=== PATIENT | male | born 1960 ===

== ENCOUNTER 2018-05-18 21:38 | Emergency (ER) | payer MEDICAID ==
[~2018-05-18] VITALS: Ht 165.1 cm; Wt 262.7 kg
[2018-05-18 21:39] VITALS: Ht 165.1 cm; Wt 262.7 kg
[2018-05-18] MEDS ORDERED: ASPIRIN EC325 M1 PO (22:36)
[2018-05-18] MEDS ORDERED: FEXOFENADINE HC60 MG PO (22:36)
[2018-05-18] MEDS ORDERED: NORVASC10 MG PO (22:36)
[2018-05-18] MEDS ORDERED: ZIAC 10-6.25 MG1 TAB PO (22:37)
[2018-05-18] MEDS ORDERED: LIPITOR10 MG PO (22:37)
[2018-05-18] MEDS ORDERED: FLOMAX0.4 MG PO (22:38)
[2018-05-18] MEDS ORDERED: RANITIDINE HCL150 M1 PO (22:39)
[2018-05-18] MEDS ORDERED: PROSCAR5 MG PO (22:39)
[2018-05-18] MEDS ORDERED: MULTI-DAY VITAM1 TAB PO (22:39)
[2018-05-18] MEDS ORDERED: LINZESS290 MCG PO (22:39)
[2018-05-18] MEDS ORDERED: BUSPIRONE HCL7.5 MG PO (22:40)
[2018-05-18] MEDS ORDERED: TRAZODONE HCL150 MG PO (22:40)
[2018-05-18] MEDS ORDERED: MUCINEX600 MG PO (22:40)
[2018-05-18] MEDS ORDERED: ZOLOFT100 MG PO (22:40)
[2018-05-18] MEDS ORDERED: METOLAZONE5 MG PO (22:41)
[2018-05-18] MEDS ORDERED: ALBUTEROL SULF8.5 GM INH (22:42)
[2018-05-18] MEDS ORDERED: NEURONTIN600 MG PO (22:43)
[2018-05-18] MEDS ORDERED: SENNA LAXATIVE8.6 MG PO (22:43)
[2018-05-18] MEDS ORDERED: ALDACTONE100 MG PO (22:43)
[2018-05-18] MEDS ORDERED: HYDROCODON-ACE1 EAC7 PO (22:44)
[2018-05-18] MEDS ORDERED: HEMORRHOIDAL OI57 GM TP (22:44)
[2018-05-18] MEDS ORDERED: IPRAT-ALBUT 0.5-3 ML UPD (22:44)
[2018-05-18] MEDS ORDERED: IMODIUM2 MG PO (22:46)
[2018-05-18] MEDS ORDERED: ROBITUSSIN DM 110 ML PO (22:46)
[2018-05-18 23:04] LABS: BASOPHILS 0.1 % (0-2); EOSINOPHILS 3.9 % (0-7); HEMOGLOBIN 11.6 g/dL (13.5-17.5); IMMATURE GRANULOCYTES 0.6 % (0-5); LYMPHOCYTES 16.5 % (15-50); MCHC 30.5 g/dL (31.0-37.0); MEAN PLATELET VOLUME 9.7 fL (7.4-10.4); MONOCYTES 8.8 % (2-11); NEUTROPHILS 70.1 % (40-80); PLATELET COUNT 153 10x3/uL (130-400); RDW 15.8 % (11.5-14.5); WBC 6.7 10x3/uL (4.8-10.8)
[2018-05-18 23:31] LABS: APTT 29.6 SECONDS (22.8-39.4); INR 1.04 (0.85-1.17); PROTIME 13.1 SECONDS (11.6-15.0)
[2018-05-18 23:32] LABS: D-DIMER-QUANTITATIVE 0.76 ug/mLFEU (0.20-0.54)
[2018-05-18 23:37] LABS: ALBUMIN 3.2 g/dL (3.4-5.0); ALKALINE PHOSPHATASE 89 U/L (46-116); ALT (SGPT) 41 U/L (10-68); BILIRUBIN - TOTAL 0.18 mg/dL (0.2-1.3); CALC OSMOLALITY 284 mosm/kg (275-300); CALCIUM 9.4 mg/dL (8.5-10.1); CARBON DIOXIDE 36.8 mmol/L (21.0-32.0); CHLORIDE - SERUM 99 mmol/L (98-107); CREATININE - SERUM 1.1 mg/dL (0.6-1.3); GLUCOSE 186 mg/dL (74-106); POTASSIUM - SERUM 5.1 mmol/L (3.5-5.1); PROTEIN - SERUM 7.8 g/dL (6.4-8.2); SODIUM 138 mmol/L (136-145); UREA NITROGEN 23 mg/dL (7-18); eGFR NON AFRICAN AMERICAN 73 mL/min (90-120)
[2018-05-18 23:55] LABS: CKMB 1.4 U/L (0.0-3.6); CREATINE KINASE 127 UL (21-232); PRO BNP 55 pg/mL (0-125); TROPONIN-I < 0.017 ng/mL (0.000-0.060)
[2018-05-19] MEDS ORDERED: OMNICEF300 MG PO (00:54)
[2018-05-19 02:30] VITALS: BP 159/92
[2018-05-26 16:55] VITALS: Ht 165.1 cm; Wt 262.7 kg
== END 2018-05-19 02:58 ==
LOC: EDBD 21:38 → D.ER 21:38
PROVIDERS: Family Medicine
DX: J40 Bronchitis, not specified as acute or chronic (principal); J44.9 Chronic obstructive pulmonary disease, unspecified; E66.01 Morbid (severe) obesity due to excess calories; G47.30 Sleep apnea, unspecified

== ENCOUNTER 2018-05-19 18:51 | Inpatient (IN) | payer MEDICARE ==
[2018-05-19] VITALS (7 sets, daily range): BP systolic 141–178; BP diastolic 65–87
[~2018-05-19] VITALS: Ht 165.1 cm; Wt 266.4 kg
[~2018-05-19 18:51] MED LIST: ALBUTEROL SULF8.5 GM INH; ALDACTONE100 MG PO; ASPIRIN EC325 M1 PO; BUSPIRONE HCL7.5 MG PO; FEXOFENADINE HC60 MG PO; FLOMAX0.4 MG PO; HEMORRHOIDAL OI57 GM TP; HYDROCODON-ACE1 EAC7 PO; IMODIUM2 MG PO; IPRAT-ALBUT 0.5-3 ML UPD; LINZESS290 MCG PO; LIPITOR10 MG PO; METOLAZONE5 MG PO; MUCINEX600 MG PO; MULTI-DAY VITAM1 TAB PO; NEURONTIN600 MG PO; NORVASC10 MG PO; OMNICEF300 MG PO; PROSCAR5 MG PO; RANITIDINE HCL150 M1 PO; ROBITUSSIN DM 110 ML PO; SENNA LAXATIVE8.6 MG PO; TRAZODONE HCL150 MG PO; ZIAC 10-6.25 MG1 TAB PO; ZOLOFT100 MG PO
[2018-05-19 20:30] LABS: BASOPHILS 0.1 % (0-2); EOSINOPHILS 0.8 % (0-7); HEMATOCRIT 41.1 % (42.0-54.0); HEMOGLOBIN 12.5 g/dL (13.5-17.5); IMMATURE GRANULOCYTES 1.1 % (0-5); LYMPHOCYTES 13.2 % (15-50); MCH 29.3 pg (26.0-34.0); MCHC 30.4 g/dL (31.0-37.0); MCV 96.5 fL (80.0-100.0); MEAN PLATELET VOLUME 10.5 fL (7.4-10.4); MONOCYTES 11.3 % (2-11); NEUTROPHILS 73.5 % (40-80); PLATELET COUNT 169 10x3/uL (130-400); RBC 4.26 10x6/uL (4.20-6.10); RDW 16.2 % (11.5-14.5)
[2018-05-19 20:45] LABS: WBC 8.7 10x3/uL (4.8-10.8)
[2018-05-19 20:52] LABS: APPEARANCE CLEAR (CLEAR); COLOR YELLOW (YELLOW); SPECIFIC GRAVITY 1.015 (1.005-1.020)
[2018-05-19 20:53] LABS: BACTERIA FEW /hpf (NONE SEEN); BILIRUBIN NEGATIVE (NEGATIVE); GLUCOSE NEGATIVE (NEGATIVE); KETONE NEGATIVE (NEGATIVE); NITRITE NEGATIVE (NEGATIVE); PROTEIN TRACE mg/dL (NEGATIVE); UROBILINOGEN NORMAL (NORMAL); WHITE CELLS - URINE OCC /hpf (0-5)
[2018-05-19 21:00] LABS: CALC OSMOLALITY 275 mosm/kg (275-300); CALCIUM 9.6 mg/dL (8.5-10.1); CARBON DIOXIDE 39.4 mmol/L (21.0-32.0); CHLORIDE - SERUM 97 mmol/L (98-107); CREATININE - SERUM 1.1 mg/dL (0.6-1.3); GLUCOSE 159 mg/dL (74-106); PRO BNP 392 pg/mL (0-125); SODIUM 134 mmol/L (136-145); UREA NITROGEN 26 mg/dL (7-18); eGFR NON AFRICAN AMERICAN 73 mL/min (90-120)
[2018-05-19 21:01] LABS: TROPONIN-I < 0.017 ng/mL (0.000-0.060)
[2018-05-19 21:02] LABS: POTASSIUM - SERUM 6.4 mmol/L (3.5-5.1)
--- NOTE | 2018-05-19 22:45 | NUR ---
PT KEEPS TAKING BIPAP OFF. EDUCATED PT ON THE NEED TO WEAR BIPAP. PAGED RT TO FIX MASK OF BIPAP WHERE PT KEEPS TAKING OFF. PT REFUSES TO ALLOW THIS NURSE OR MOSES GARCIA TO PLACE BIPAP MASK ON. NOTIFIED DOCTOR DOWNEN THAT PT KEEPS TAKING MASK OFF.
[2018-05-20] VITALS (20 sets, daily range): BP systolic 109–164; BP diastolic 60–94; BMI 96.5; BMI 96.3
--- NOTE | 2018-05-20 00:05 | NUR ---
ANESTHESIA PAGED FOR POSSIBLE INTUBATION
--- NOTE | 2018-05-20 00:15 | NUR ---
ANESTHESIA INTUBATED PT WITH 8.5 et TUBE 23CM AT LIP. OGT PLACED AND XRAY OBTAINED TO CHECK FOR PLACEMENT. 0048 SOFT WRIST RESTRAINTS PLACED ON PT TO PROTECT AIRWAY. 1302 DIPROVAN STARTED AT 10MCG/KG/MIN. VENT SETTINGS ARE FOLLOWING: TV 500 PEEP 10 100% FIO2. VSS. BP 167/90 HR 127 98% PER VENT.
--- NOTE | 2018-05-20 03:29 | NUR ---
IVF STOPPED WHEN PT TRANSFERED TO ICU @0205
--- NOTE | 2018-05-20 03:32 | NUR ---
KAYE STOPPED @ 0205 WHEN PT TRANSFERED TO ICU
--- NOTE | 2018-05-20 03:40 | NUR ---
PT RECIEVED TO ICU 2306 VIA [facility] BED. MONITOR EQUIP ESTABLISHED. VSS. ON VENTILATOR PER ORAL 8.5 ETT 28 AT LL. SECURELY TAPED. OGT IN PLACE. HOB ELEVATED. PIV R HAND WITH PROPOFOL INFUSING FOR SEDATION. NSR PER CM. FONTENOT TO GRAVITY WITH BLODD TINGED URINE DRAINING. PRESSURE ULCER NOTED TO THE BACK OF LEFT LEG APPROX 1 INCH IN DIAMETER.
--- NOTE | 2018-05-20 07:00 | NUR ---
SHIFT ASSESSMENT COMPLETED. PT CARE ASSUMED. MONITORS ON AND WORKING, VITALS STABLE, SEE FLOW SHEET FOR FURTHER DETAILS. WILL CONTINUE TO OBSERVE.
[2018-05-20 08:44] LABS: BASOPHILS 0.2 % (0-2); EOSINOPHILS 0.3 % (0-7); HEMATOCRIT 35.4 % (42.0-54.0); HEMOGLOBIN 10.8 g/dL (13.5-17.5); IMMATURE GRANULOCYTES 0.8 % (0-5); LYMPHOCYTES 9.4 % (15-50); MCH 29.3 pg (26.0-34.0); MCHC 30.5 g/dL (31.0-37.0); MCV 95.9 fL (80.0-100.0); MEAN PLATELET VOLUME 10.4 fL (7.4-10.4); MONOCYTES 10.5 % (2-11); NEUTROPHILS 78.8 % (40-80); PLATELET COUNT 150 10x3/uL (130-400); RBC 3.69 10x6/uL (4.20-6.10); WBC 8.7 10x3/uL (4.8-10.8)
[2018-05-20 08:45] LABS: INR 1.08 (0.85-1.17); PROTIME 13.5 SECONDS (11.6-15.0)
[2018-05-20 08:46] LABS: APTT 28.4 SECONDS (22.8-39.4)
[2018-05-20 08:47] LABS: D-DIMER-QUANTITATIVE 0.67 ug/mLFEU (0.20-0.54)
--- NOTE | 2018-05-20 09:00 | NUR ---
PT REPOSITIONED IN BED, VASCULAR ACCESS NURSE CONSULTED FOR LINE. MONITORS ON AND WORKING, VITALS STABLE, WILL CONTINUE TO OBSERVE.
[2018-05-20 09:03] LABS: ALBUMIN 2.9 g/dL (3.4-5.0); ALKALINE PHOSPHATASE 80 U/L (46-116); ALT (SGPT) 41 U/L (10-68); BILIRUBIN - TOTAL 0.28 mg/dL (0.2-1.3); CALC OSMOLALITY 283 mosm/kg (275-300); CALCIUM 9.2 mg/dL (8.5-10.1); CARBON DIOXIDE 34.7 mmol/L (21.0-32.0); CHLORIDE - SERUM 98 mmol/L (98-107); GLUCOSE 182 mg/dL (74-106); POTASSIUM - SERUM 5.1 mmol/L (3.5-5.1); SODIUM 138 mmol/L (136-145); UREA NITROGEN 22 mg/dL (7-18); eGFR NON AFRICAN AMERICAN 81 mL/min (90-120)
[2018-05-20 09:27] LABS: % SATURATION 14 % (15-55); IRON 36 ug/dl (35-150); TOTAL IRON BIND CAPACITY 257 ug/dl (260-445); UNSAT IRON BIND CAPACITY 221 ug/dl (150-375)
--- NOTE | 2018-05-20 11:00 | NUR ---
MIDLINE PLACED IN LUE, MONITORS ON AND WORKING, VITALS STABLE. SEE FLOW SHEET FOR FURTHER DETAILS. WILL CONTINUE TO OBSERVE.
--- NOTE | 2018-05-20 12:56 | NUR ---
Nutrition follow-up/consult: RDN consulted for TF. Physician wants extreme low kcal intake and increased protein intake for rapid weight loss in extremely obese pt. RDN will order Pulmocare to start @ 10 ml/hr with increase to goal rate of 34 ml/hr. 1224 kcal 51 gm protein 641 ml free H2O Will also need Proteinex, 30 ml, 30 ml flushed in warm water 5 x per day to meet estimated protein needs. Will also need an additional multivitamin added to meet daily RDI's RDN will order TF. RDN following.
--- NOTE | 2018-05-20 13:00 | NUR ---
PT REPOSITIONED IN BED, ORAL CARE DONE AT THIS TIME. NO SIGNS/SYMPTOMS OF PAIN OR DISCOMFORT NOTED. WILL CONTINUE TO OBSERVE.
--- NOTE | 2018-05-20 19:00 | NUR ---
ASSESSMENT COMPLETED PER FLOWSHEETS. PT SEDATED ON VENT, OPENS EYES WITH VOICES, SR ON CM WITH HR AT 84BPM. LUNG SOUNDS DIMINISHED TO LLB. UNABLE TO VERIFIED OGT, OUT OF PLACE, STOPED TF, REINSERTED, TAPED TO ETT. VERIFIED WITH AIR BOLUS WITH GOOD SOUND TO ABD. WILL CONT TO MONITOR.
--- NOTE | 2018-05-20 23:00 | NUR ---
REASSESSMENT COMPLETED PER FLOWSHEETS. VSS. NO ACUTE CHANGES IN PT'S CONDITION NOTED AT THIS TIME. TITRATE PROPOFOL TO 30MCG PER ORDER TO KEEP PT CALM. WILL CONT TO MONITOR.
[2018-05-21] VITALS (22 sets, daily range): BP systolic 119–150; BP diastolic 77–106
--- NOTE | 2018-05-21 01:00 | NUR ---
PT SEDATED ON VENT, RESTING QUIETLY WITHOUT DISTRESS. VSS.
--- NOTE | 2018-05-21 03:00 | NUR ---
REASSESSMENT COMPLETED PER FLOWSHEETS. PT SEDATED ON VENT, NO SIGNS OF DISTRESS NOTED AT THIS TIME. VSS. CPOC.
[2018-05-21 04:01] LABS: BASOPHILS 0 % (0-2); EOSINOPHILS 0 % (0-7); HEMATOCRIT 36.6 % (42.0-54.0); HEMOGLOBIN 11.4 g/dL (13.5-17.5); IMMATURE GRANULOCYTES 0.8 % (0-5); LYMPHOCYTES 7.1 % (15-50); MCH 29.2 pg (26.0-34.0); MCHC 31.1 g/dL (31.0-37.0); MEAN PLATELET VOLUME 10.5 fL (7.4-10.4); MONOCYTES 4.4 % (2-11); NEUTROPHILS 87.7 % (40-80); PLATELET COUNT 155 10x3/uL (130-400); RDW 15.5 % (11.5-14.5)
[2018-05-21 04:08] LABS: MCV 93.8 fL (80.0-100.0)
[2018-05-21 04:15] LABS: ALBUMIN 2.9 g/dL (3.4-5.0); ANION GAP 9.1 mmol/L (8-16); BILIRUBIN - TOTAL 0.35 mg/dL (0.2-1.3); CALCIUM 9.6 mg/dL (8.5-10.1); CARBON DIOXIDE 38.7 mmol/L (21.0-32.0); CREATININE - SERUM 1.1 mg/dL (0.6-1.3); POTASSIUM - SERUM 4.8 mmol/L (3.5-5.1); PROTEIN - SERUM 7.8 g/dL (6.4-8.2)
--- NOTE | 2018-05-21 04:15 | NUR ---
I&O COMPLETED TO CHART.
--- NOTE | 2018-05-21 07:00 | NUR ---
SHIFT ASSESSMENT COMPLETED, PT CARE ASSUMED, MONITORS ON AND WORKING, VITALS STABLE, NO SIGNS/SYMPTOMS OF PAIN OR DISCOMFORT NOTED. SEE FLOW SHEET FOR FURTHER DETAILS. WILL CONTINUE TO OBSERVE.
--- NOTE | 2018-05-21 09:00 | NUR ---
ORAL CARE PROVIDED, NO SIGNS/SYMPTOMS OF PAIN OR DISCOMFORT NOTED AT THIS TIME. VITALS STABLE. WILL CONTINUE TO OBSERVE.
--- NOTE | 2018-05-21 09:54 | NUR ---
Nutrition follow-up: Pt intubated, with propofol @ 46.8 ml/hr and Fentynal for sedation TF and protein supplement have not been started 2/2 large output per OGT at this time. Labs reviewed RDN following.
--- NOTE | 2018-05-21 11:00 | NUR ---
NO CHANGES, MONITORS ON AND WORKING, VITALS STABLE, SEE FLOW SHEET FOR FURTHER DETIALS. WILL CONTINUE TO OBSERVE.
[2018-05-21 11:21] LABS: FOLATE (FOLIC ACID) - SERUM 15.7 ng/mL (>3.0)
--- NOTE | 2018-05-21 19:08 | NUR ---
REPORT RECEIVED, SHIFT ASSESSMENT COMPLETED PER FLOW SHEET. SEDATED ON VENT, OPENS EYES TO VERBAL STIMULI. PPP. OGT TO LIWS, INFORMED BY DAY SHIFT RN THAT WE ARE TO HOLD TUBE FEEDINGS DUE TO HIGH AMOUNT OF STOMACH CONTENT FROM OGT. SCD'S ON. SEE FLOW SHEET FOR COMPLETE ASSESSMENT. WILL CONTINUE TO MONITOR.
--- NOTE | 2018-05-21 21:00 | NUR ---
NO ACUTE CHANGES NOTED, WILL CONTINUE TO MONITOR. SEDATED ON VENT, OPENS EYES TO SPEECH.
--- NOTE | 2018-05-21 23:18 | NUR ---
REASSESSMENT COMPLETED PER FLOW SHEET, SEE FOR DETAILS. NO ACUTE CHANGES NOTED. WILL CONTINUE TO MONITOR.
[2018-05-22] VITALS (22 sets, daily range): BP systolic 121–181; BP diastolic 77–98
--- NOTE | 2018-05-22 01:00 | NUR ---
ORAL CARE PROVIDED, NO ACUTE DISTRESS NOTED, WILL CONTINUE TO MONITOR.
--- NOTE | 2018-05-22 02:43 | NUR ---
PATIENT ANXIOUS, BITING AT ETT, VENT ALARM GOING OFF, UNABLE TO KEEP CALM, TITRATING DIPRIVAN PER DOCTOR'S ORDERS. WILL CONTINUE TO MONITOR.
--- NOTE | 2018-05-22 03:01 | NUR ---
REASSESSMENT COMPLETED PER FLOW SHEET, SEE FOR DETAILS. ORAL CARE PROVIDED. WILL CONTINUE TO MONITOR.
[2018-05-22 03:59] LABS: BASOPHILS 0.1 % (0-2); EOSINOPHILS 0 % (0-7); HEMATOCRIT 37.4 % (42.0-54.0); HEMOGLOBIN 11.6 g/dL (13.5-17.5); IMMATURE GRANULOCYTES 0.9 % (0-5); LYMPHOCYTES 6.5 % (15-50); MCH 28.9 pg (26.0-34.0); MCV 93.3 fL (80.0-100.0); MEAN PLATELET VOLUME 10.4 fL (7.4-10.4); MONOCYTES 8.8 % (2-11); NEUTROPHILS 83.7 % (40-80); PLATELET COUNT 167 10x3/uL (130-400); RBC 4.01 10x6/uL (4.20-6.10); RDW 15.9 % (11.5-14.5); WBC 8.2 10x3/uL (4.8-10.8)
[2018-05-22 04:20] LABS: ALBUMIN 2.9 g/dL (3.4-5.0); ANION GAP 9.2 mmol/L (8-16); BILIRUBIN - TOTAL 0.31 mg/dL (0.2-1.3); CALCIUM 9.5 mg/dL (8.5-10.1); CARBON DIOXIDE 39.5 mmol/L (21.0-32.0); CREATININE - SERUM 1.3 mg/dL (0.6-1.3); MAGNESIUM - SERUM 2.1 mg/dL (1.8-2.4); PHOSPHOROUS 4.2 mg/dL (2.5-4.9); POTASSIUM - SERUM 4.7 mmol/L (3.5-5.1)
--- NOTE | 2018-05-22 05:00 | NUR ---
CALM, SEDATED ON VENT, ORAL CARE PROVIDED. WILL CONTINUE TO MONITOR.
--- NOTE | 2018-05-22 07:15 | NUR ---
REPORT RECEIVED. PT ON VENT AND HAS OGT. PT HAS FONTENOT. ON ESTEBAN MAX AIR BED. PT HAS MIDLINE IV IN RIGHT UPPER ARM AND IV IN RIGHT HAND. HEAD TO TOE ASSESSMENT DONE. VSS. NO DISTRESS NOTED.
--- NOTE | 2018-05-22 07:35 | NUR ---
900 ML OUTPUT VIA NG SUCTION. NEW JOSE PUT UP. LIS.
--- NOTE | 2018-05-22 09:45 | NUR ---
PT RESTING QUIETLY. VSS. WILL CONTINUE TO MONITOR.
--- NOTE | 2018-05-22 11:10 | NUR ---
PT SUCTIONED. REPOSITIONED. VSS. WILL CONTINUE TO MONITOR.
--- NOTE | 2018-05-22 12:33 | NUR ---
Nutrition follow-up: Pt intubated, sedaated with propofol, fentanyl, versed TF remain on hold due to high gastric output for OGT Reglan started Recommend ProcalAmine PPN @ 125 ml/hr to provide 90 gm protein with minimal kcals. RDN following.
--- NOTE | 2018-05-22 13:15 | NUR ---
RESP IN WITH PT. SUCTIONED. NEW PROPOFOL HUNG. VSS. PICC ORDER PLACED. WILL CONTINUE TO MONITOR.
--- NOTE | 2018-05-22 15:12 | EC ---
PATIENT:TRACEE ALVAREZ DATE OF SERVICE: 05/20/18 SEX: M MEDICAL RECORD: [id number] DATE OF : 58 LOCATION:[facility] D230 AGE OF PATIENT: 57 ADMISSION DATE: 05/20/18 REFERRING PHYSICIAN: INTERPRETING PHYSICIAN: NHUNG DACOSTA MD ECHOCARDIOGRAM REPORT ECHO CHARGES 4 ECHO COMPLETE Date: 05/20/18 CLINICAL DIAGNOSIS: CHF ECHOCARDIOGRAPHIC MEASUREMENTS (adult normal given) AC root (d.<3.7cm) 3.6 cm LV Septum d (<1.2 cm> 1.3 cm Valve Excursion 1.8 cm LV Septum (systole) 1.9 cm Left Atria (s.<4.0cm> 4.9 cm LVPW d(<1.2cm) 1.2 cm RV (d.<2.3cm) 2.2 cm LVPW (sytole) 1.9 cm LV diastole(<5.6CM) 5.7 cm MV E-F(>70mm/sec) cm LV systole 3.9 cm LVOT Diameter 2.3 cm MV exc.(>10mm) cm Est.ejection fraction (50-75%) % DOPPLER: LVIT cm/sec A 67.0 cm/sec E 85.0 cm/sec LA cm/sec RVSP 21.2 mmHg LVOT 100 cm/sec AOP1/2T m/s Asc. Ao 184 cm/sec RVOT 75.0 cm/sec RA cm/sec PA 80.0 cm/sec AV Gradient Peak 14.0 mmHg AV Mean 7.4 mmHg AV Area 2.1 cm MV Gradient Peak 4.6 mmHg MV Mean 1.9 mmHg MV Area cm COMMENTS: Cell Tower Climber: Sherif GONZALESOE Etl Architect: 1 Dr. Dacosta TAPE# PACS Pericardial Effusion N DATE OF SERVICE: 05/20/2018 PROCEDURE: Echocardiogram. FINDINGS: 1. Left ventricular chamber size is within normal limits. Left ventricular systolic function is mildly depressed. The lower limits of normal at 45% to 50%. 2. Left atrium is enlarged at 4.9 cm. Right atrium and right ventricular chamber sizes are as well mildly dilated. ECHOCARDIOGRAM REPORT [id number] TRACEE ALVAREZ 3. Valvular structures have normal structure and motion. 4. Doppler interrogation reveals no significant valvular insufficiency or stenosis. 5. No evidence of pericardial effusion or left ventricular thrombus. Pulmonary systolic pressure is normal estimated at 21 mmHg. TRANSINT:[id number] Voice Confirmation ID: [id number] DOCUMENT ID: [id number] NHUNG DACOSTA MD at 1512 CC: [id number] DICTATION DATE: 05/20/18 1121 DENTAL ASSOCIATE: 05/20/18 1229 ADM IN [place] [id number] [place] [address]
--- NOTE | 2018-05-22 15:26 | NUR ---
PICC IN LEFT UPPER ARM. TRIPLE LUMEN. NEW PROPOFOL AND FENTANYL HUNG. VSS.
--- NOTE | 2018-05-22 16:42 | MORECARE ---
CASE MANAGEMENT DISCHARGE SUMMARY PATIENT: TRACEE BYRNE UNIT: [id number] ADM DATE: 05/20/18 AGE: 57 : 58 SEX: M ROOM/BED: D.2307 AUTHOR: JOHN SEAY PHYSICIAN: REFERRING PHYSICIAN: SHIMON BORGES MD DATE OF SERVICE: 05/22/18 Discharge Plan Patient Name: TRACEE BYRNE Facility: [facility]:[place] : 1960 Planned Disposition: Anticipated Discharge Date: Discharge Date: Expected LOS: Initial Reviewer: [email or web address] Initial Review Date: 05/20/2018 Generated: 05/22/18 5:42 pm Comments DCP- Discharge Planning Updated by [email or web address]: Serenity Serra on 05/22/18 3:[address] Patient is a long-term resident at [facility] [phone]. [place] plans on patient returning to their facility when discharged. CM will continue to follow and assist as needed with discharge planning / needs. DCP- Discharge Planning Updated by [email or web address]: Serenity Serra on 05/22/18 3:[address] Late Entry - 05/21/18 @ 1330 CM attempted to visit with patient regarding discharge planning/ needs. Patient currently on vent no family available. CM will continue to follow and assist as needed with discharge planning / needs CM received notice for LTACH eval prior to trach placement. Patient is a resident at [facility]. CM called to get information on next of kin or emergency contact to get consent and YANE for LTACH eval. Jorden Areli (uncle) [phone], Evin Byrne (niece) [phone]. CM has not been able to get in contact with family for YANE. Patient Name: TRACEE BYRNE Page [phone] at 1642 All edits/amendments must be made on the electronic document DICTATION DATE: 05/22/181641 CLINICAL RESOURCE NURSE: BIJAN 05/22/181641 RPT#: [id number] DC DATE: STATUS: ADM IN [facility] [address] [place] [address] END OF REPORT
[2018-05-22 16:44] LABS: HEMATOCRIT 37.2 % (42.0-54.0); HEMOGLOBIN 11.8 g/dL (13.5-17.5)
--- NOTE | 2018-05-22 17:50 | NUR ---
PT SUCTIONED. THICK GREENISH/JAY DRAINAGE FROM NOSE. VSS. WILL CONTINUE TO MONITOR.
--- NOTE | 2018-05-22 19:36 | NUR ---
SHIFT ASSESSMENT COMPLETED SEE FLOWSHEET
--- NOTE | 2018-05-22 21:24 | NUR ---
ORAL CARE PREFORMED. IV TUBING CHANGED PER POLICY. VSS CPOC
--- NOTE | 2018-05-22 23:45 | NUR ---
REASSESSMENT COMPLETED SEE FLOWSHEET
[2018-05-23] VITALS (25 sets, daily range): BP systolic 115–160; BP diastolic 75–95
--- NOTE | 2018-05-23 00:51 | NUR ---
PATIENT INTUBATED/SEDATED ON VENT. VSS IV TUBING CHANGED PER POLICY. CPOC
--- NOTE | 2018-05-23 03:10 | NUR ---
REASSESSMENT COMPLETED SEE FLOWSHEET
--- NOTE | 2018-05-23 03:39 | NUR ---
REASSESSMENT COMPLETED
--- NOTE | 2018-05-23 04:53 | NUR ---
PATIENT INTUBATED/SEDATED VSS CPOC
[2018-05-23 06:00] LABS: BASOPHILS 0.1 % (0-2); EOSINOPHILS 0.1 % (0-7); HEMATOCRIT 38.6 % (42.0-54.0); HEMOGLOBIN 12.4 g/dL (13.5-17.5); IMMATURE GRANULOCYTES 1.3 % (0-5); LYMPHOCYTES 8.8 % (15-50); MCH 30.5 pg (26.0-34.0); MCHC 32.1 g/dL (31.0-37.0); MCV 95.1 fL (80.0-100.0); MEAN PLATELET VOLUME 10.4 fL (7.4-10.4); MONOCYTES 11.9 % (2-11); NEUTROPHILS 77.8 % (40-80); PLATELET COUNT 187 10x3/uL (130-400); RBC 4.06 10x6/uL (4.20-6.10); RDW 16.2 % (11.5-14.5); WBC 10.1 10x3/uL (4.8-10.8)
[2018-05-23 06:39] LABS: CREATININE - SERUM 1.4 mg/dL (0.6-1.3)
[2018-05-23 06:40] LABS: ANION GAP 12.2 mmol/L (8-16); CALCIUM 8.6 mg/dL (8.5-10.1); POTASSIUM - SERUM 4.2 mmol/L (3.5-5.1)
[2018-05-23 06:41] LABS: ALBUMIN 3.1 g/dL (3.4-5.0); BILIRUBIN - TOTAL 0.41 mg/dL (0.2-1.3)
--- NOTE | 2018-05-23 07:14 | NUR ---
REPORT RECEIVED. PT ON VENT. SETTINGS PER RT. OGT TO LIS. PT HAS CARLOS PICC. PROTONIX, PROPOFOL, AND FENTANYL INFUSING. HEAD TO TOE ASSESSMENT PERFORMED. FONTENOT IN PLACE. THICK GREEN/JAY DRAINAGE FROM RIGHT NARE. VSS. PT ON [facility] MAX BED. WILL CONTINUE TO MONITOR.
--- NOTE | 2018-05-23 09:20 | NUR ---
PT SUCTIONED. VSS. WILL CONTINUE TO MONITOR.
--- NOTE | 2018-05-23 11:45 | NUR ---
DR SMALL IN WITH PT. WANTS TO RESUME TUBE FEEDINGS LOW RESIDUAL STAYS DOWN. STATED THAT WE CAN CHANGE THE PROTONIX DRIP TO 40MG IV Q12H AND TO MONITOR CVP. VSS.
--- NOTE | 2018-05-23 13:30 | NUR ---
TUBE FEEDING STARTED. PULMOCARE AT 20ML/HR WITH FLUSH OF 20/HR. WILL MONITOR RESIDUALS.
[2018-05-23 15:21] LABS: HEMATOCRIT 35.1 % (42.0-54.0); HEMOGLOBIN 11.5 g/dL (13.5-17.5)
--- NOTE | 2018-05-23 15:21 | NUR ---
CVP IS 21-22. PAGED DR SMALL.
--- NOTE | 2018-05-23 17:50 | NUR ---
RIGHT NARE GREEN DRAINAGE. SUCTIONED. VSS. NO LONGER ON FENTANYL. WILL CONTINUE TO MONITOR.
--- NOTE | 2018-05-23 19:30 | NUR ---
PATIENT CARE RECEIVED AND SHIFT ASSESSMENT COMPLETED - VSS - NOTED DRAINAGE FROM RT NARE, FACIAL CARE AND SUCTIONING PERFORMED. CPOC
--- NOTE | 2018-05-23 21:27 | NUR ---
PT INTUBATED/SEDATED VSS CPOC
--- NOTE | 2018-05-23 21:49 | NUR ---
TUBE FEED PAUSED AT THIS TIME. AIR BOLUS AUDIBLE LLQ - 65CC RESIDUAL RETURNED TO PATIENT AT THIS TIME. TUBE FEED RESUMED. VSS CPOC
[2018-05-24] VITALS (25 sets, daily range): BP systolic 124–152; BP diastolic 74–97
--- NOTE | 2018-05-24 01:29 | NUR ---
PT INTUBATED AND SEDATED, RESTING COMFORTABLY ON VENT - NO APPARENT DISTRESS, VSS CPOC
--- NOTE | 2018-05-24 03:09 | NUR ---
REASSESSMENT COMPLETED SEE FLOWSHEET
[2018-05-24 06:03] LABS: BASOPHILS 0.1 % (0-2); EOSINOPHILS 0 % (0-7); HEMATOCRIT 36.5 % (42.0-54.0); HEMOGLOBIN 11.5 g/dL (13.5-17.5); IMMATURE GRANULOCYTES 1.1 % (0-5); LYMPHOCYTES 10.8 % (15-50); MCH 29.1 pg (26.0-34.0); MCHC 31.5 g/dL (31.0-37.0); MEAN PLATELET VOLUME 10.4 fL (7.4-10.4); MONOCYTES 6.8 % (2-11); NEUTROPHILS 81.2 % (40-80); PLATELET COUNT 163 10x3/uL (130-400); RBC 3.95 10x6/uL (4.20-6.10); RDW 15.8 % (11.5-14.5); WBC 9.8 10x3/uL (4.8-10.8)
[2018-05-24 06:09] LABS: MCV 92.4 fL (80.0-100.0)
[2018-05-24 06:15] LABS: ALBUMIN 2.9 g/dL (3.4-5.0); ANION GAP 7.6 mmol/L (8-16); BILIRUBIN - TOTAL 0.38 mg/dL (0.2-1.3); CALCIUM 9.6 mg/dL (8.5-10.1); CREATININE - SERUM 1.4 mg/dL (0.6-1.3); POTASSIUM - SERUM 4.5 mmol/L (3.5-5.1); PROTEIN - SERUM 8.1 g/dL (6.4-8.2)
[2018-05-24 06:16] LABS: CARBON DIOXIDE 40.9 mmol/L (21.0-32.0)
--- NOTE | 2018-05-24 19:15 | NUR ---
PT RECEIVED SEDATED ON VENT. VSS. VENT A/C 20, 500, 100%, 7.0. ETT 7.5. NO S/S OF DISTRESS. WILL CONTINUE TO OBSERVE.
--- NOTE | 2018-05-24 19:21 | NUR ---
0900 ORAL CARE PROVIDED
--- NOTE | 2018-05-24 19:21 | NUR ---
0700 SEDATED ON VENT ASSESSMENT COMPLETE
--- NOTE | 2018-05-24 19:23 | NUR ---
1100 STOPPED TUBE FEEDING FOR SCHEDULED PROCEEDURE
--- NOTE | 2018-05-24 19:35 | NUR ---
1300 CONSENT OBTAINED FROM CLOSEST FAMILY MEMBER [facility]
--- NOTE | 2018-05-24 19:36 | NUR ---
[address] SMALL O2 SAT 95%
--- NOTE | 2018-05-24 19:37 | NUR ---
1700 FAMILY MEMBER AT BEDSIDE UPDATE GIVEN RREMAINS ON VENT AT 100% 02
--- NOTE | 2018-05-24 21:50 | NUR ---
REPOSITIONING PROVIDED. PT TOLERATED WELL. VSS. WILL CONTINUE TO OBSERVE.
--- NOTE | 2018-05-24 23:17 | NUR ---
REASSESSMENT COMPLETED, SEE FLOW SHEET. WILL CONTINUE TO OBSERVE.
[2018-05-25] VITALS (24 sets, daily range): BP systolic 117–157; BP diastolic 73–99
--- NOTE | 2018-05-25 01:05 | NUR ---
PT CONTINUES SEDATION, VENT WITH NO CHANGES TO SETTINGS. NO S/S OF DISTRESS. WILL CONTINUE TO OBSERVE.
[2018-05-25 05:16] LABS: BASOPHILS 0.1 % (0-2); EOSINOPHILS 0.1 % (0-7); HEMOGLOBIN 11.8 g/dL (13.5-17.5); IMMATURE GRANULOCYTES 2.7 % (0-5); MCH 29.5 pg (26.0-34.0); MCHC 31.9 g/dL (31.0-37.0); MCV 92.5 fL (80.0-100.0); MEAN PLATELET VOLUME 10.7 fL (7.4-10.4); MONOCYTES 10.9 % (2-11); NEUTROPHILS 81.2 % (40-80); PLATELET COUNT 183 10x3/uL (130-400); WBC 11.3 10x3/uL (4.8-10.8)
[2018-05-25 05:30] LABS: ALBUMIN 2.9 g/dL (3.4-5.0); ANION GAP 7.3 mmol/L (8-16); BILIRUBIN - TOTAL 0.4 mg/dL (0.2-1.3); CREATININE - SERUM 1.3 mg/dL (0.6-1.3); MAGNESIUM - SERUM 2.7 mg/dL (1.8-2.4); PHOSPHOROUS 4.8 mg/dL (2.5-4.9); POTASSIUM - SERUM 4.3 mmol/L (3.5-5.1); PROTEIN - SERUM 8.3 g/dL (6.4-8.2)
--- NOTE | 2018-05-25 07:10 | NUR ---
RECEIVED BEDSIDE REPORT ON PATIENT AND ASSUMED CARE. PATIENT ON VENT, SEDATED, TV 500, A/C 20, PEEP 7, FIO2 - 100%. IVS INFUSING W/O S/S OF INFILTRATION TO LEFT PICC. PROPOFOL AT 50 MCG/KG/MIN (78 CC/HR), FENTANYL AT 6 CC/HR (300 MCG/HR) AND NS AT 10 CC/HR. CVP LEVELED AND ZEROED - 26. CM - 82, SR, SPO2 - 94%. PATIENT GIVEN COMPLETE BATH AND LINENS CHANGED, TURNED AND REPOSTIONED IN BED. HEAD TO TOE ASSESSMENT COMPLETED.
--- NOTE | 2018-05-25 09:00 | NUR ---
PATIENT TURNED AND REPOSITIONED. VSS. SUCTIONED ORAL AND ETT.
--- NOTE | 2018-05-25 09:49 | NUR ---
Nutrition follow-up: Pulmocare @ 25 ml/hr goal - 900 kcal 38 gm protein Propofol @ 78 ml/hr - 2060 kcal Proteinex 5x/day - 300 kcal 75 gm protein Total kcal/protein 3260 kcal 113 gm protein Pt is receiving the bulk of kcal from propofol. Labs reviewed. Pt also receiving liquid MVI supplement Wt: 582# RDN following.
--- NOTE | 2018-05-25 10:58 | NUR ---
REASSESSMENT COMPLETED, NO CHANGES NOTED. VSS. CVP LEVEL AND ZEROED - 26.
--- NOTE | 2018-05-25 11:13 | NUR ---
DR. SMALL AT ROOM UPDATED AND EXAMINES PATIENTS. SPEAKS WITH PATIENTS AUNTS AND ANSWERS QUESTIONS.
--- NOTE | 2018-05-25 13:03 | NUR ---
PATIENT RESTING QUIETLY, SEDATED ON VENT. VSS. TURNED AND REPOSITIONED. ORAL CARE COMPLETED.
--- NOTE | 2018-05-25 15:06 | NUR ---
PATIENT SPO2 AT 84% ON 100% FIO2 ON VENT, SUCTIONED WITH NO IMPROVEMENT. RT CALLED, WHILE WAITING ON RT, TOOK PATIENT OF VENT AND VENTILATED VIA BVM WITH SPO2 INCREASED TO 86%. RT AT ROOM AND DR. SMALL CONTACTED. CONTINUING TO VENTILATE PATIENT VIA BVM WITH SPO2 INCREASED TO 87%.
--- NOTE | 2018-05-25 15:10 | NUR ---
DR. SMALL AT ROOM, UPDATED AND EXAMINES PATIENT. ADJUSTS VENT SETTINGS. RATE 16, TV 450, FIO2 100% AND PEEP 8. SPO2 - 89% TO OBTAIN ABG IN 30 MINUTES.
--- NOTE | 2018-05-25 16:33 | NUR ---
XRAY AT ROOM FOR CHEST XRAY.
--- NOTE | 2018-05-25 17:15 | NUR ---
PATIENT CONTINUES TO HIGH PEAK THE VENT, RT AND DR. SMALL AT ROOM, VENTILATOR CHANGED OUT WITH NO AFFECT. DR. SMALL AT BEDSIDE ADJUSTING VENT SETTINGS.
--- NOTE | 2018-05-25 19:01 | NUR ---
REPORT RECEIVED, CARE ASSUMED. PT IS INTUBATED AND SEDATED IN BED AT THIS TIME. INITIAL ASSESSMENT COMPLETED, SEE FLOWSHEET FOR DETAILS. PT REPOSITIONED FOR COMFORT. ORAL CARE PERFORMED. NO FURTHER NEEDS NOTED. PT CONTINUES TO HIGH PEAK THE VENT. NO SIGNS OF ACUTE DISTRES. WILL CONTINUE TO MONITOR.
--- NOTE | 2018-05-25 21:01 | NUR ---
PT IS RESTING IN BED INTUBATED AND SEDATED. PT REPOSITIONED FOR COMFORT. ORAL CARE PERFORMED. NO SIGNS OF ACUTE DISTRESS. WILL CONTINUE TO MONITOR.
--- NOTE | 2018-05-25 23:02 | NUR ---
REASSESSMENT COMPLETED, SEE FLOWSHEET FOR DETAILS. PT REPOSITIONED FOR COMFORT. ORAL CARE PERFORMED. NO SIGNS OF ACUTE DISTRESS. WILL CONTINUE TO MONITOR.
[2018-05-26] VITALS (24 sets, daily range): BP systolic 108–191; BP diastolic 63–113
--- NOTE | 2018-05-26 01:02 | NUR ---
PT REPOSITIONED FOR COMFORT. ORAL CARE PERFORMED. NO NEEDS NOTED AT THIS TIME. NO SIGNS OF ACUTE DISTRESS. WILL CONTINUE TO MONITOR.
--- NOTE | 2018-05-26 03:03 | NUR ---
REASSESSMENT COMPLETED, SEE FLOWSHEET FOR DETAILS. PT REPOSITIONED FOR COMFORT. ORAL CARE PERFORMED. NO SIGNS OF ACUTE DISTRESS. WILL CONTINUE TO MONITOR.
[2018-05-26 04:54] LABS: BASOPHILS 0.1 % (0-2); EOSINOPHILS 0.1 % (0-7); HEMATOCRIT 38.7 % (42.0-54.0); HEMOGLOBIN 11.8 g/dL (13.5-17.5); IMMATURE GRANULOCYTES 3.3 % (0-5); LYMPHOCYTES 7.6 % (15-50); MCHC 30.5 g/dL (31.0-37.0); MEAN PLATELET VOLUME 10.2 fL (7.4-10.4); MONOCYTES 4.5 % (2-11); NEUTROPHILS 84.4 % (40-80); PLATELET COUNT 160 10x3/uL (130-400); RBC 4.07 10x6/uL (4.20-6.10); RDW 15.7 % (11.5-14.5); WBC 13.8 10x3/uL (4.8-10.8)
[2018-05-26 04:56] LABS: MCV 95.1 fL (80.0-100.0)
--- NOTE | 2018-05-26 05:03 | NUR ---
PT REPOSITIONED FOR COMFORT. ORAL CARE PERFORMED. NO SIGNS OF ACUTE DISTRESS. WILL CONTINUE TO MONITOR.
[2018-05-26 05:12] LABS: ALBUMIN 2.9 g/dL (3.4-5.0); ANION GAP 8.6 mmol/L (8-16); BILIRUBIN - TOTAL 0.39 mg/dL (0.2-1.3); CALCIUM 8.4 mg/dL (8.5-10.1); CARBON DIOXIDE 38.2 mmol/L (21.0-32.0); CREATININE - SERUM 1.5 mg/dL (0.6-1.3); MAGNESIUM - SERUM 2.9 mg/dL (1.8-2.4); POTASSIUM - SERUM 4.8 mmol/L (3.5-5.1); PROTEIN - SERUM 8.2 g/dL (6.4-8.2)
[2018-05-26 05:13] LABS: PHOSPHOROUS 7.9 mg/dL (2.5-4.9)
--- NOTE | 2018-05-26 07:00 | NUR ---
REPORT RECEIEVED. ASSESSMENT COMPLETE PER FLOW SHEET. VSS. ORAL ENODTRACH CARE ADM. PT SEDATED COMFORTABLE. NEEDS MET WILL CONTINUE TO MONITOR
--- NOTE | 2018-05-26 09:00 | NUR ---
DR JORDAN AT BEDSIDE GIVEN UPDATE. NEW ORDERS RECEIVED
--- NOTE | 2018-05-26 11:00 | NUR ---
REASSESSMENT COMPLETE PER FLOW SHEET VSS NO NEW CHANGES WILL CONTINUE TO MONITOR
--- NOTE | 2018-05-26 11:59 | MORECARE ---
CASE MANAGEMENT DISCHARGE SUMMARY PATIENT: TRACEE BYRNE UNIT: [id number] ADM DATE: 05/20/18 AGE: 57 : 58 SEX: M ROOM/BED: D.2307 AUTHOR: JOHN SEAY PHYSICIAN: REFERRING PHYSICIAN: SHIMON BORGES MD DATE OF SERVICE: 05/26/18 Discharge Plan Patient Name: TRACEE BYRNE Facility: [facility]:[place] : 1960 Planned Disposition: Anticipated Discharge Date: Discharge Date: Expected LOS: Initial Reviewer: [email or web address] Initial Review Date: 05/20/2018 Generated: 05/26/18 12:59 pm DCP- Discharge Planning Updated by [email or web address]: Serenity Serra on 05/22/18 3:[address] Patient is a long-term resident at [facility] [phone]. [place] plans on patient returning to their facility when discharged. CM will continue to follow and assist as needed with discharge planning / needs. DCP- Discharge Planning Updated by [email or web address]: Serenity Serra on 05/22/18 3:[address] Late Entry - 05/21/18 @ 1330 CM attempted to visit with patient regarding discharge planning/ needs. Patient currently on vent no family available. CM will continue to follow and assist as needed with discharge planning / needs CM received notice for LTACH eval prior to trach placement. Patient is a resident at [facility]. CM called to get information on next of kin or emergency contact to get consent and YANE for LTACH eval. Jorden Singleton (uncle) [phone], Evin Byrne (niece) [phone]. CM has not been able to get in contact with family for YANE. External Providers External Provider: [facility] Next Contact Date: Service Request Date: Service Type: Resolution: Reviewer: Comments: Last DP export: 05/22/18 3:42 p Patient Name: TRACEE BYRNE Page [phone] at 1159 All edits/amendments must be made on the electronic document DICTATION DATE: 05/26/181158 SUPERVISOR FINAL: BIJAN 05/26/181158 RPT#: [id number] DC DATE: STATUS: ADM IN [facility] [address] [place] [address] END OF REPORT
--- NOTE | 2018-05-26 12:41 | MORECARE ---
CASE MANAGEMENT DISCHARGE SUMMARY PATIENT: TRACEE BYRNE UNIT: [id number] ADM DATE: 05/20/18 AGE: 57 : 58 SEX: M ROOM/BED: D.2307 AUTHOR: GEENA,DOC PHYSICIAN: REFERRING PHYSICIAN: SHIMON BORGES MD DATE OF SERVICE: 05/26/18 Discharge Plan Patient Name: TRACEE BYRNE Facility: [facility]:[place] : 1960 Planned Disposition: Anticipated Discharge Date: Discharge Date: Expected LOS: Initial Reviewer: [email or web address] Initial Review Date: 05/20/2018 Generated: 05/26/18 1:41 pm Comments DCP- Discharge Planning Updated by [email or web address]: Serenity Serra on 05/26/18 11:[address] CM was able to get in touch with patient's uncle Jorden Singleton [phone]. CM explained that he was listed as next of kin / emergency contact for patient. He stated that the patient had spoken with him and said that if he was unable to make decisions for himself that he wanted him to make decisions for him. He stated that there was some family issues when the patient's mother and no family available to help take care of patient. This is the reason the patient was [facility] [place] [facility]. Mr. Singleton stated that he is in the and is currently, as we speak, going through customs and will be out of the country. CM explained situation regarding LTACH placement and trach placement. He stated that he can call back later this evening if needed. Mr. Singleton stated that the patient has a niece that in his absence is to make decisions in his behalf. Evin Byrne [phone] CM contacted Evin and spoke to her regarding patient and LTACH needs and patient will need trach in near future. vEin lives in [place]. She stated that if we need to contact her to call and if she doesn't answer to please leave message and she would call back GRETCHEN. CM went over different LTACH facilities within the state. Evin requested a [facility] if possible. That way if she flies in he is close to airport. Evin chose [facility] and [facility]. CM notified physician and referral placed to [facility]. CM is awaiting response from [facility]. CM will continue to follow and assist as needed with discharge planning needs. DCP- Discharge Planning Updated by [email or web address]: Serenity Maryse on 05/22/18 3:[address] Patient is a long-term resident at [facility] [phone]. [place] plans on patient returning to their facility when discharged. CM will continue to follow and assist as needed with discharge planning / needs. DCP- Discharge Planning Updated by [email or web address]: Serenity Serra on 05/22/18 3:[address] Late Entry - 05/21/18 @ 1330 CM attempted to visit with patient regarding discharge planning/ needs. Patient currently on vent no family available. CM will continue to follow and assist as needed with discharge planning / needs CM received notice for LTACH eval prior to trach placement. Patient is a resident at [facility]. CM called to get information on next of kin or emergency contact to get consent and YANE for LTACH eval. Jorden Singleton (uncle) [phone], Evin Byrne (niece) [phone]. CM has not been able to get in contact with family for YANE. Last DP export: 05/26/18 10:59 a Patient Name: TRACEE BYRNE Page [phone] at 1241 All edits/amendments must be made on the electronic document DICTATION DATE: 05/26/181239 HOUSEHOLD COOK: BIJAN 05/26/18 124 RPT#: [id number] DC DATE: STATUS: ADM IN [facility] [address] [place] [address] END OF REPORT
--- NOTE | 2018-05-26 13:00 | NUR ---
DR JORDAN CALLED GIVEN UDPATE. NEW ORDERS RECIEVED.
--- NOTE | 2018-05-26 14:10 | NUR ---
DR TOLENTINO AT BEDSIDE GIVEN UDPATE
--- NOTE | 2018-05-26 15:00 | NUR ---
REASSESSMENT COMPLETE PER FLOW SHEET. VSS. NO NEW CHANGES PT RESTING COMFRTABLY WILL CONTINUE TO MONITOR
--- NOTE | 2018-05-26 15:42 | MORECARE ---
CASE MANAGEMENT DISCHARGE SUMMARY PATIENT: TRACEE BYRNE UNIT: [id number] ADM DATE: 05/20/18 AGE: 57 : 58 SEX: M ROOM/BED: D.2307 AUTHOR: GEENA,DOC PHYSICIAN: REFERRING PHYSICIAN: SHIMON BORGES MD DATE OF SERVICE: 05/26/18 Discharge Plan Patient Name: TRACEE BYRNE Facility: [facility]:[place] : 1960 Planned Disposition: Anticipated Discharge Date: Discharge Date: Expected LOS: Initial Reviewer: [email or web address] Initial Review Date: 05/20/2018 Generated: 05/26/18 4:42 pm Comments DCP- Discharge Planning Updated by [id number]: Serenity Serra on 05/26/18 11:[address] CM was able to get in touch with patient's uncle Jorden Singleton [phone]. CM explained that he was listed as next of kin / emergency contact for patient. He stated that the patient had spoken with him and said that if he was unable to make decisions for himself that he wanted him to make decisions for him. He stated that there was some family issues when the patient's mother and no family available to help take care of patient. This is the reason the patient was placed in the shelter. Mr. Singleton stated that he is in the and is currently, as we speak, going through customs and will be out of the country. CM explained situation regarding LTACH placement and trach placement. He stated that he can call back later this evening if needed. Mr. Singleton stated that the patient has a niece that in his absence is to make decisions in his behalf. Evin Byrne [phone] CM contacted Evin and spoke to her regarding patient and LTACH needs and patient will need trach in near future. Evin lives in [place]. She stated that if we need to contact her to call and if she doesn't answer to please leave message and she would call back GRETCHEN. CM went over different LTACH facilities within the state. Evin requested a [facility] if possible. That way if she flies in he is close to airport. Evin chose #1 [facility] and #2 [facility]. CM notified physician and referral placed to [facility]. CM is awaiting response from [facility]. CM will continue to follow and assist as needed with discharge planning needs. DCP- Discharge Planning Updated by [email or web address]: Serenity Serra on 05/22/18 3:[address] Patient is a long-term resident at [facility] [phone]. [place] plans on patient returning to their facility when discharged. CM will continue to follow and assist as needed with discharge planning / needs. DCP- Discharge Planning Updated by [email or web address]: Serenity Serra on 05/22/18 3:[address] Late Entry - 05/21/18 @ 1330 CM attempted to visit with patient regarding discharge planning/ needs. Patient currently on vent no family available. CM will continue to follow and assist as needed with discharge planning / needs CM received notice for LTACH eval prior to trach placement. Patient is a resident at [facility]. CM called to get information on next of kin or emergency contact to get consent and YANE for LTACH eval. Jorden Singleton (uncle) [phone], Evin Byrne (niece) [phone]. CM has not been able to get in contact with family for YANE. External Providers External Provider: [facility] Next Contact Date: Service Request Date: Service Type: Resolution: Reviewer: Comments: Last DP export: 05/26/18 11:41 a Patient Name: TRACEE BYRNE Page [phone] at 1542 All edits/amendments must be made on the electronic document DICTATION DATE: 05/26/18 1542 FOOD SAFETY SCIENTIST: BIJAN 05/26/18 1542 RPT#: [id number] DC DATE: STATUS: ADM IN [facility] [address] [place] [address] END OF REPORT
--- NOTE | 2018-05-26 17:00 | NUR ---
ORAL CARE ADM. VSS. NO NEW CHANGES. WILL CONTINUE TO MONITOR
--- NOTE | 2018-05-26 18:20 | NUR ---
FAMILY AT BEDSIDE. GIVEN UDPATE
--- NOTE | 2018-05-26 19:30 | NUR ---
REPORT RECEIVED CARE ASSUMED INITIAL SHIFT ASSESSMENT COMPLETED SEE FLOWSHEET. PT REMAINS DEPENDENT ON MECHANICAL VENTILATION VIA ETT. SETTINGS PER FLOWSHEET. RECEIVING PULMOCARE 25ML/HR WITH A 25ML WATER FLUSH QH PER PUMP VIA OGT. IV FLUIDS AND LINES ARE CURRENT AND ARE DATED AND APPROPRIATELY LABELED. SEE IV GTT SHEET FOR RATES AND CHANGES. PT REMAINS TOTAL CARE FOR ALL ADLS AND NOTED TO HAVE MODERATE AMOUNT OF ORAL SECRETIONS. CUFF LEAK IN ETT. RT AT BEDSIDE TO ADDRESS THE LEAK, RESOLVED. PT IS BEING MONITORED PER STANDARD ICU PROTOCOL WITH ALL ALARMS SET, VERIFIED AND AUDIBLE AT NURSES STATION. BED IN LOW POSITION. PT IS ON SPECIALTY BED DUE TO SIZE OF PT FOR COMFORT AND TO MAINTAIN SKIN INTEGRITY. PT IS IN DIRECT VISION OF NURSES STATION, ALL NEEDS PROVIDED
--- NOTE | 2018-05-26 20:18 | NUR ---
CLASSMATE MACEY SOLIZ STOPPED BY TO VISIT AND PROVIDED PHONE NUMBER FOR PT'S NEPHEW'S STEPMOTHER, KEATON MCCARTY [phone]. CALL MADE TO OBTAIN FURTHER INFORMATION REGARDING EMERGENCY CONTACT AND FAMILY ETC BUT DID NOT RECEIVE ANSWER. WILL PASS ON THE INFORMATION TO DAY SHIFT TO FOLLOW UP. MACEY SOLIZ'S PHONE NUMBER [phone].
--- NOTE | 2018-05-26 21:00 | NUR ---
MEDS GIVEN DOCUMENTED ON APR AFTER CHECKING PLACEMENT OF NGT WITH AIR BOLUS. RESIDUAL ALSO CHECKED AND AT 330ML. TUBE FEEDINGS TURNED OFF AT THIS TIME.
[2018-05-26 21:06] LABS: ACID FAST SMEAR Negative (()); AFB SPECIMEN PROCESSING Concentration (())
--- NOTE | 2018-05-26 23:00 | NUR ---
SHIFT REASSESSMENT COMPLETED SEE FLOWSHEET. TUBE FEEDING REMAINS ON HOLD.
[2018-05-27] VITALS (24 sets, daily range): BP systolic 99–166; BP diastolic 62–92
--- NOTE | 2018-05-27 00:44 | MORECARE ---
CASE MANAGEMENT DISCHARGE SUMMARY PATIENT: TRACEE BYRNE UNIT: [id number] ADM DATE: 05/20/18 AGE: 57 : 58 SEX: M ROOM/BED: D.2307 AUTHOR: GEENA,DOC PHYSICIAN: REFERRING PHYSICIAN: SHIMON BORGES MD DATE OF SERVICE: 05/27/18 Discharge Plan Patient Name: TRACEE BYRNE Facility: [facility]:[place] : 1960 Planned Disposition: Anticipated Discharge Date: Discharge Date: Expected LOS: Initial Reviewer: [email or web address] Initial Review Date: 05/20/2018 Generated: 05/27/18 1:44 am Comments DCP- Discharge Planning Updated by [email or web address]: Serenity Serra on 05/26/18 11:[address] [facility] in stated they could not accommodate this patient at this time. CM called and spoke with [facility] [phone] fax [phone]. CM faxed over records and awaiting determination . CM will continue to follow and assist as needed with discharge planning / needs. DCP- Discharge Planning Updated by [email or web address]: Serenity Serra on 05/26/18 11:[address] CM was able to get in touch with patient's uncle Jorden Singleton [phone]. CM explained that he was listed as next of kin / emergency contact for patient. He stated that the patient had spoken with him and said that if he was unable to make decisions for himself that he wanted him to make decisions for him. He stated that there was some family issues when the patient's mother and no family available to help take care of patient. This is the reason the patient was placed in the [facility]dc. Mr. Singleton stated that he is in the and is currently, as we speak, going through customs and will be out of the country. CM explained situation regarding LTACH placement and trach placement. He stated that he can call back later this evening if needed. Mr. Singleton stated that the patient has a niece that in his absence is to make decisions in his behalf. Evin Byrne [phone] CM contacted Evin and spoke to her regarding patient and LTACH needs and patient will need trach in near future. Evin lives in [place]. She stated that if we need to contact her to call and if she doesn't answer to please leave message and she would call back GRETCHEN. CM went over different LTACH facilities within the state. Evin requested a [facility] if possible. That way if she flies in he is close to airport. Evin chose #1 [facility] and #2 [facility]. CM notified physician and referral placed to [facility]. CM is awaiting response from [facility]. CM will continue to follow and assist as needed with discharge planning needs. DCP- Discharge Planning Updated by [email or web address]: Serenity Serra on 05/22/18 3:[address] Patient is a long-term resident at [facility] [phone]. [place] plans on patient returning to their facility when discharged. CM will continue to follow and assist as needed with discharge planning / needs. DCP- Discharge Planning Updated by [id number]: Serenity Serra on 05/22/18 3:[address] Late Entry - 05/21/18 @ 1330 CM attempted to visit with patient regarding discharge planning/ needs. Patient currently on vent no family available. CM will continue to follow and assist as needed with discharge planning / needs CM received notice for LTACH eval prior to trach placement. Patient is a resident at [facility]. CM called to get information on next of kin or emergency contact to get consent and YANE for LTACH eval. Jorden Areli (uncle) [phone], Evin Byrne (niece) [phone]. CM has not been able to get in contact with family for YANE. Last DP export: 05/26/18 2:42 p Patient Name: TRACEE BYRNE Page [id number] at 0044 All edits/amendments must be made on the electronic document DICTATION DATE: 05/27/1843 COMMUNICATIONS ASSISTANT: BIJAN 05/27/1843 RPT#: [id number] DC DATE: STATUS: ADM IN [facility] [address] [place] [address] END OF REPORT
--- NOTE | 2018-05-27 03:18 | NUR ---
PT HAS BEEN DESATING IN MID 80'S. RT AT BEDSIDE TO LAVAGE AND BAG WITHOUT RESOLUTION. ABG'S DRAWN AND DR. JORDAN NOTIFIED BY RT. NEW ORDERS CARRIED OUT BY RT.
--- NOTE | 2018-05-27 03:20 | NUR ---
PERFORMED ALVEOLAR RECRUITMENT MANUEVER PER JORDAN ORDER. PEEP OF 30 FOR 30 SECONDS. THEN RETURN PT TO 10 OF PEEP. CONTINUE TO MONITOR.
--- NOTE | 2018-05-27 04:00 | NUR ---
WAS ABLE TO REACH AN EMERGENCY CONTACT LISTED ON THE [place] [employer] BY NAME OF DEMETRICE ALVAREZ. DID RELAY SERIOUSNESS OF SITUATION AND THAT THE DOCTORS LIMITED ON OPTIONS FOR TREATMENT AT THIS TIME. RELAYED THAT PT IS DOING VERY POORLY AND SITUATION IS GRAVE. DEMETRICE STATED SHE WAS AWARE PT WAS IN THE HOSPITAL AND DID KNOW HE WASNT DOING WELL. SHE INDICATED THAT SHE HAS A BROTHER LIVING LOCALLY THAT SHE WOULD REACH AND HAVE HIM TO CALL. DEMETRICE IS FROM [place] PER [place] [employer]. WILL AWAIT RETURN CALL FROM LOCAL FAMILY.
--- NOTE | 2018-05-27 04:30 | NUR ---
PT MORE STABLE BUT REMAINS FRAGILE AND CRITICAL. SPO2 HAS RESOLVED IN UPPER 80'S AND LOWER 90'S. HR IS NOW 60-80. PRECEDEX RESUMED AT 0.1MCG AND FENTANYL AND VERSED RESUMED. THESE WERE TURNED OFF FOR A PERIOD OF TIME WHILE WORKING WITH CRITICAL SPO2 PER DR. JORDAN WHILE HE WAS MANAGING HIS CARE VIA PHONE WHEN PT WAS HAVING BRADYCARDIA AND CRITICAL SPO2.
--- NOTE | 2018-05-27 04:46 | NUR ---
CALL RECEIVED FROM DEMETRICE WHO STATED SHE WOULD NOT BE COMING DUE TO THE DISTANCE. HER BROTHER VIRGINIA ALVAREZ IS TO CONTACT US AND HIS PHONE NUMBER IS [phone]. SHE RELATED THAT HE WOULD BE CALLING AND COMING UP TO THE UNIT TO SPEAK WITH THE STAFF AND PHYSICIANS TO MAKE SOME DECISIONS REGARDING CARE OF THE PATIENT. DEMETRICE RELATED THAT SHE IS MAKING EVERY EFFORT POSSIBLE TO CONTACT [facility] WHO IS OUT OF THE COUNTRY BUT IS LISTED THE 1ST EMERGENCY FORMULA BOTTLER FOR PT.
--- NOTE | 2018-05-27 05:54 | NUR ---
PT RESTING VSS AT THIS ITME
[2018-05-27 06:04] LABS: ALBUMIN 2.9 g/dL (3.4-5.0); ANION GAP 11.9 mmol/L (8-16); BILIRUBIN - TOTAL 0.41 mg/dL (0.2-1.3); CALCIUM 8.8 mg/dL (8.5-10.1); CARBON DIOXIDE 36.2 mmol/L (21.0-32.0); CREATININE - SERUM 1.4 mg/dL (0.6-1.3); POTASSIUM - SERUM 4.1 mmol/L (3.5-5.1); PROTEIN - SERUM 8.4 g/dL (6.4-8.2)
[2018-05-27 06:25] LABS: HEMATOCRIT 37.7 % (42.0-54.0); HEMOGLOBIN 12.1 g/dL (13.5-17.5); MCH 28.8 pg (26.0-34.0); MCHC 32.1 g/dL (31.0-37.0); MEAN PLATELET VOLUME 10.5 fL (7.4-10.4); PLATELET COUNT 169 10x3/uL (130-400); RDW 15.4 % (11.5-14.5); WBC 13.7 10x3/uL (4.8-10.8)
[2018-05-27 06:26] LABS: MCV 89.8 fL (80.0-100.0)
--- NOTE | 2018-05-27 07:15 | NUR ---
REPORT RECIEVED. ASSESSMENT COMPLETE PER FLOW SHEET. VSS PT RESTING COMFORTABLY WILL CONTINUE TO MONITOR
[2018-05-27 07:39] LABS: LYMPHOCYTES 6 % (15-50); MONOCYTES 5 % (2-11); NEUTROPHILS 83 % (40-80)
[2018-05-27 07:40] LABS: PLATELET ESTIMATE NORMAL
--- NOTE | 2018-05-27 09:00 | NUR ---
DR JORDAN AT BEDSIDE NEW ORDERS RECEIVED. VSS. RT AT BEDSIDE. WILL CONTINUE TO MONITOR
--- NOTE | 2018-05-27 10:05 | NUR ---
Nutrition follow-up: Remains intubated Scheduled for trach today Labs reviewed TF on hold Wt: 586# RDN following.
--- NOTE | 2018-05-27 10:30 | NUR ---
ORAL ENODTRACH CARE ADM. VSS NO NEW CHANGES WILL CONTINUE TO MONITOR
--- NOTE | 2018-05-27 11:35 | NUR ---
REASSESSMENT COMPLETE PER FLOW SHEET. VSS. NO NEW CHANGES PT RESTING COMFORTABLY WILL CONTINUE OT MONITOR
--- NOTE | 2018-05-27 12:10 | MORECARE ---
CASE MANAGEMENT DISCHARGE SUMMARY PATIENT: TRACEE BYRNE UNIT: [id number] ADM DATE: 05/20/18 AGE: 57 : 58 SEX: M ROOM/BED: D.2307 AUTHOR: GEENA,DOC PHYSICIAN: REFERRING PHYSICIAN: SHIMON SIEGEL MD DATE OF SERVICE: 05/27/18 Discharge Plan Patient Name: TRACEE BYRNE Facility: [facility]:[place] : 1960 Planned Disposition: Anticipated Discharge Date: Discharge Date: Expected LOS: Initial Reviewer: [email or web address] Initial Review Date: 05/20/2018 Generated: 05/27/18 1:09 pm Comments DCP- Discharge Planning Updated by [email or web address]: Rachel Dia on 05/27/18 11:[address] CM received call back from Pam at [facility]. Pam stated facility unable to accept patient this size. States they are unable to meet patient needs. CM informed Eve, ICU nurse program development manager; Dr. Siegel and Dr Walker on status of LTACH referral. Eve will follow up with [facility]. CM will continue to follow and assist as needed with discharge planning / needs. DCP- Discharge Planning Updated by [email or web address]: Serenity Serra on 05/26/18 11:[address] [facility] in stated they could not accommodate this patient at this time. CM called and spoke with [facility] [phone] fax [phone]. CM faxed over records and awaiting determination . CM will continue to follow and assist as needed with discharge planning / needs. DCP- Discharge Planning Updated by [email or web address]: Serenity Serra on 05/26/18 11:[address] CM was able to get in touch with patient's uncle Jorden Singleton [phone]. CM explained that he was listed as next of kin / emergency contact for patient. He stated that the patient had spoken with him and said that if he was unable to make decisions for himself that he wanted him to make decisions for him. He stated that there was some family issues when the patient's mother and no family available to help take care of patient. This is the reason the patient was placed in the correction. Mr. Singleton stated that he is in the and is currently, as we speak, going through customs and will be out of the country. CM explained situation regarding LTACH placement and trach placement. He stated that he can call back later this evening if needed. Mr. Singleton stated that the patient has a niece that in his absence is to make decisions in his behalf. Evin Byrne [phone] CM contacted Evin and spoke to her regarding patient and LTACH needs and patient will need trach in near future. Evin lives in [place]. She stated that if we need to contact her to call and if she doesn't answer to please leave message and she would call back GRETCHEN. CM went over different LTACH facilities within the [facility]. Evin requested a [facility] if possible. That way if she flies in he is close to airport. [facility] and [facility]. CM notified physician and referral placed to [facility]. CM is awaiting response from [facility]. CM will continue to follow and assist as needed with discharge planning needs. DCP- Discharge Planning Updated by [id number]: Serenity Serra on 05/22/18 3:[address] Patient is a long-term resident at [facility] [phone]. [place] plans on patient returning to their facility when discharged. CM will continue to follow and assist as needed with discharge planning / needs. DCP- Discharge Planning Updated by [email or web address]: Serenity Serra on 05/22/18 3:[address] Late Entry - 05/21/18 @ 1330 CM attempted to visit with patient regarding discharge planning/ needs. Patient currently on vent no family available. CM will continue to follow and assist as needed with discharge planning / needs CM received notice for LTACH eval prior to trach placement. Patient is a resident at [facility]. CM called to get information on next of kin or emergency contact to get consent and YANE for LTACH eval. Jorden Singleton (uncle) [phone], Evin Byrne (niece) [phone]. CM has not been able to get in contact with family for YANE. Last DP export: 05/26/18 11:44 p Patient Name: TRACEE BYRNE Page [id number] at 1210 All edits/amendments must be made on the electronic document DICTATION DATE: 05/27/181208 STAFF RADIATION THERAPIST: BIJAN 05/27/181208 RPT#: [id number] DC DATE: STATUS: ADM IN [facility] [address] [place] [address] END OF REPORT
[2018-05-27 13:13] LABS: FUNGUS STAIN Final report (())
--- NOTE | 2018-05-27 13:20 | NUR ---
DR JORDAN AT BEDSIDE GIVEN UPDATE
--- NOTE | 2018-05-27 14:39 | EC ---
PATIENT:TRACEE ALVAREZ DATE OF SERVICE: 05/20/18 SEX: M MEDICAL RECORD: [id number] DATE OF : 58 LOCATION:[facility] D230 AGE OF PATIENT: 57 ADMISSION DATE: 05/20/18 REFERRING PHYSICIAN: INTERPRETING PHYSICIAN: NHUNG DACOSTA MD ECHOCARDIOGRAM REPORT ECHO CHARGES 5 ECHO LIMITED Date: 05/24/18 CLINICAL DIAGNOSIS: R-L SHUNT ECHOCARDIOGRAPHIC MEASUREMENTS (adult normal given) AC root (d.<3.7cm) 0 cm LV Septum d (<1.2 cm> 0 cm Valve Excursion 0 cm LV Septum (systole) 0 cm Left Atria (s.<4.0cm> 0 cm LVPW d(<1.2cm) 0 cm RV (d.<2.3cm) 0 cm LVPW (sytole) 0 cm LV diastole(<5.6CM) 0 cm MV E-F(>70mm/sec) 0 cm LV systole 0 cm LVOT Diameter 0 cm MV exc.(>10mm) 0 cm Est.ejection fraction (50-75%) 0 % DOPPLER: LVIT cm/sec A 0 cm/sec E 0 cm/sec LA 0 cm/sec RVSP 0 mmHg LVOT 0 cm/sec AOP1/2T 0 m/s Asc. Ao 0 cm/sec RVOT 0 cm/sec RA 0 cm/sec PA 0 cm/sec AV Gradient Peak 0 mmHg AV Mean 0 mmHg AV Area 0 cm MV Gradient Peak 0 mmHg MV Mean 0 mmHg MV Area cm COMMENTS: Attorney Lawyer: Donald HOGUE V Belt Inspector: 1 Dr. Dacosta TAPE# PACS Pericardial Effusion N DATE OF SERVICE: Limited echo with bubble study was performed. There was no ziao-qy-xbnkg or bifah-vt-ehwx shunt present. TRANSINT:[id number] Voice Confirmation ID: [id number] DOCUMENT ID: [id number] ECHOCARDIOGRAM REPORT [id number] TRACEE ALVAREZ JEFFREY MD at 1439 CC: [id number] DICTATION DATE: 05/24/18 1325 SPECIAL PROGRAMS DIRECTOR: 05/24/18 1924 ADM IN [place] [id number] [facility] [place] [address]
--- NOTE | 2018-05-27 15:00 | NUR ---
REASSESSMENT COMPLETE PER FLOW SHEET. VSS. NO NEW CHANGES WILL CONTINUE TO MONITOR
--- NOTE | 2018-05-27 15:15 | NUR ---
REASSESSMENT COMPLETE PER FLOW SHEET. VSS. NO NEW CHANGES WILL CONTINUE TO MONITOR
--- NOTE | 2018-05-27 17:15 | NUR ---
FAMILY FRIEND AT BEDSIDE GIVEN UPDATE
--- NOTE | 2018-05-27 19:00 | NUR ---
REPORT RECEIVED. RECIEVED PT IN BED. SEDATED. OPENS EYES TO VERBAL STIMULI. 8.5 ETT INTACT/SECURED AND CONNECTED MECH VENT WITH SETTINGS ORDERED. HOB UP 30 DEGREES. VAP PROTOCOL OBSERVED. OGT INTACT/SECURED. PLACEMENT VERIFIED WITH AIR AUSC . RESIDUAL 250ML. TUBE FEEDING REMAINS OFF. VSS. NO ACUTE DISTRESS OBSERVED. MONITORS CONNECTED TO PT WITH ALARMS SET. CALL LIGHT IN REACH.
--- NOTE | 2018-05-27 19:30 | NUR ---
BP 187/90 CARDENE INCREASED TO 15MG/HR
--- NOTE | 2018-05-27 20:56 | NUR ---
BP CONTINUES ELEVATED 170/90 DR. NIKKI KERR AT THIS TIME.
--- NOTE | 2018-05-27 21:00 | NUR ---
VSS. ETT INTACT/SECURED AND CONNECTED TO MECH VENT WITH SETTINGS ORDERED. NO CHANGES.
--- NOTE | 2018-05-27 23:00 | NUR ---
REASSESSMENT COMPLETED PER FLOW SHEET WITH NO CHANGES OR ACUTE DISTRESS OBSERVED. VSS
[2018-05-28] VITALS (24 sets, daily range): BP systolic 108–162; BP diastolic 70–99; Ht 165.1 cm; Wt 266.4 kg
--- NOTE | 2018-05-28 01:00 | NUR ---
VSS. NO CHANGES AT THIS TIME
--- NOTE | 2018-05-28 03:00 | NUR ---
REASSESSMENT COMPLETED PER FLOW SHEET WITH NO CHANGES OBSERVED. VSS.
--- NOTE | 2018-05-28 05:00 | NUR ---
VSS. NO CHANGES AT THIS TIME
[2018-05-28 05:02] LABS: BASOPHILS 0.2 % (0-2); EOSINOPHILS 0.1 % (0-7); HEMOGLOBIN 12.2 g/dL (13.5-17.5); IMMATURE GRANULOCYTES 5.4 % (0-5); LYMPHOCYTES 10.4 % (15-50); MCH 29.3 pg (26.0-34.0); MCHC 32.1 g/dL (31.0-37.0); MCV 91.1 fL (80.0-100.0); MEAN PLATELET VOLUME 10.9 fL (7.4-10.4); MONOCYTES 5.7 % (2-11); NEUTROPHILS 78.2 % (40-80); PLATELET COUNT 154 10x3/uL (130-400); RBC 4.17 10x6/uL (4.20-6.10); RDW 15.8 % (11.5-14.5); WBC 12.8 10x3/uL (4.8-10.8)
[2018-05-28 05:34] LABS: ALBUMIN 2.7 g/dL (3.4-5.0); ANION GAP 9.6 mmol/L (8-16); BILIRUBIN - TOTAL 0.34 mg/dL (0.2-1.3); CARBON DIOXIDE 37.8 mmol/L (21.0-32.0); CREATININE - SERUM 1.2 mg/dL (0.6-1.3); POTASSIUM - SERUM 4.4 mmol/L (3.5-5.1)
--- NOTE | 2018-05-28 07:00 | NUR ---
REC'D CARE OF PT. SEDATED ON VENT.
--- NOTE | 2018-05-28 07:30 | NUR ---
OGT. TO LIWS. PLACEMENT VERIFIED WITH SMALL AIR BOLUS AUSCULTATED OVER GASTRIC REGION.
--- NOTE | 2018-05-28 07:44 | NUR ---
BILAT UPPER ARM PICC LINES. PERCIDEX INFUSING AT RIGHT PICC LINE. ALL OTHER INFUSIONS/DRIPS INFUSING AT LEFT PICC LINE. LEFT PICC WITH CVP BEING MEASURED AT DISTAL PORT.AILYNG CD&I. STERILE CAPS IN PLACE. BIOPATCH IN PLACE X2.
--- NOTE | 2018-05-28 08:41 | NUR ---
INCREASED RATE TO [address] JORDAN
--- NOTE | 2018-05-28 10:01 | NUR ---
DR. JORDAN INCREASED PEEP TO 5
--- NOTE | 2018-05-28 10:10 | NUR ---
DECREASED RATE OF PRECEDEX TO 6.5 CC PER HOUR OR 0.1MCG/KG/HR PER DR. BAHENA REQUEST.
--- NOTE | 2018-05-28 11:18 | NUR ---
RESSESSMENT COMPLETED PER FLOW SHEET. NO ACUTE CHANGES.
--- NOTE | 2018-05-28 12:20 | NUR ---
TRYING TO CLIMB OOB. PULLING AT TUBES. INCREASED PRECEDEX TO 0.2 MCG.
--- NOTE | 2018-05-28 12:40 | NUR ---
PT. CALM. NO MORE PULLING AT LINES.
--- NOTE | 2018-05-28 12:41 | NUR ---
FAMILY TOOK ALL OF PERSONAL BELONGINGS WITH THE EXCEPTION OF PT. GLASSES. THEY WANTED TO LEAVE THE GLASSES FOR PT.
--- NOTE | 2018-05-28 14:28 | NUR ---
REASSESSMENT COMPLETED PER FLOW SHEET. NO ACUTE CHANGES.
--- NOTE | 2018-05-28 15:14 | MORECARE ---
CASE MANAGEMENT DISCHARGE SUMMARY PATIENT: TRACEE BYRNE UNIT: [id number] ADM DATE: 05/20/18 AGE: 57 : 58 SEX: M ROOM/BED: D.2307 AUTHOR: GEENA,DOC PHYSICIAN: REFERRING PHYSICIAN: SHIMON SIEGEL MD DATE OF SERVICE: 05/28/18 Discharge Plan Patient Name: TRACEE BYRNE Facility: [facility]:[place] : 1960 Planned Disposition: Anticipated Discharge Date: Discharge Date: Expected LOS: Initial Reviewer: [email or web address] Initial Review Date: 05/20/2018 Generated: 05/28/18 4:14 pm DCP- Discharge Planning Updated by [email or web address]: Rachel Dia on 05/27/18 11:[address] CM received call back from Pam at [facility]. Pam stated facility unable to accept patient this size. States they are unable to meet patient needs. CM informed Eve, ICU nurse analytical manager; Dr. Siegel and Dr Walker on status of LTACH referral. Eve will follow up with [facility]. CM will continue to follow and assist as needed with discharge planning / needs. DCP- Discharge Planning Updated by [email or web address]: Serenity Serra on 05/26/18 11:[address] [facility] in stated they could not accommodate this patient at this time. CM called and spoke with [facility] [phone] fax [phone]. CM faxed over records and awaiting determination . CM will continue to follow and assist as needed with discharge planning / needs. DCP- Discharge Planning Updated by [email or web address]: Serenity Serra on 05/26/18 11:[address] CM was able to get in touch with patient's uncle Jorden Singleton [phone]. CM explained that he was listed as next of kin / emergency contact for patient. He stated that the patient had spoken with him and said that if he was unable to make decisions for himself that he wanted him to make decisions for him. He stated that there was some family issues when the patient's mother and no family available to help take care of patient. This is the reason the patient was placed in the senior care. Mr. Singleton stated that he is in the and is currently, as we speak, going through customs and will be out of the country. CM explained situation regarding LTACH placement and trach placement. He stated that he can call back later this evening if needed. Mr. Singleton stated that the patient has a niece that in his absence is to make decisions in his behalf. Evin Byrne [phone] CM contacted Evin and spoke to her regarding patient and LTACH needs and patient will need trach in near future. Evin lives in [place]. She stated that if we need to contact her to call and if she doesn't answer to please leave message and she would call back GRETCHEN. CM went over different LTACH facilities within the [facility]. Evin requested a [place] [facility] if possible. That way if she flies in he is close to airport. Evin [facility] and [facility]2 [facility]. CM notified physician and referral placed to [facility]. CM is awaiting response from [facility]. CM will continue to follow and assist as needed with discharge planning needs. DCP- Discharge Planning Updated by [email or web address]: Serenity Serra on 05/22/18 3:[address] Patient is a long-term resident at [facility] [phone]. Maynard plans on patient returning to their facility when discharged. CM will continue to follow and assist as needed with discharge planning / needs. DCP- Discharge Planning Updated by [email or web address]: Serenity Serra on 05/22/18 3:[address] Late Entry - 05/21/18 @ 1330 CM attempted to visit with patient regarding discharge planning/ needs. Patient currently on vent no family available. CM will continue to follow and assist as needed with discharge planning / needs CM received notice for LTACH eval prior to trach placement. Patient is a resident at [facility]. CM called to get information on next of kin or emergency contact to get consent and YANE for LTACH eval. Jodren Singleton (uncle) [phone], Evin Byrne (niece) [phone]. CM has not been able to get in contact with family for YANE. External Providers External Provider: OTHER-OTHER Next Contact Date: Service Request Date: Service Type: Resolution: Reviewer: Comments: Last DP export: 05/27/18 11:09 a Patient Name: TRACEE BYRNE Page [id number] at 1514 All edits/amendments must be made on the electronic document DICTATION DATE: 05/28/181513 IMAGING NURSE: BIJAN 05/28/181513 RPT#: [id number] DC DATE: STATUS: ADM IN [facility] [address] [place] [address] END OF REPORT
--- NOTE | 2018-05-28 16:15 | NUR ---
NO ACUTE CHANGES. VSS.
--- NOTE | 2018-05-28 17:54 | NUR ---
CN=NS Rate OF 57. NO ECTOPY.
--- NOTE | 2018-05-28 19:00 | NUR ---
REPORT RECEIVED. RECEIVED PATIENT RESTING WITH EYES CLOSED. SEDATED. OPENS EYES TO VERBAL STIMULI. 8.5 ETT INTACT/SECURED/PATENT AND CONNECTED TO [facility] VENT WITH SETTINGS ORDERED. HOB UP 30 DEGREES. VAP PROTOCOL OBSERVED. OGT INTACT/PATENT. PLACEMENT VERIFIED WITH AIR AUSC. DRAINING DARK BROWN FLUID. TUBE FEEDING REMAINS OFF DUE TO HIGH RESIDUALS. MONITORS CONNECTED TO PATIENT WITH ALARMS SET. VSS AT PRESENT. IV FLUIDS/TUBING DATED/LABELED AND CURRENT.
--- NOTE | 2018-05-28 21:00 | NUR ---
2100 MEDS ADMIN. ETT SUCTIONED WITH MODERATE AMOUNT OF JAY SECRETIONS OBTAINED. ORAL CARE PROVIDED. VSS.
--- NOTE | 2018-05-28 23:00 | NUR ---
REASSESSMENT COMPLETED PER FLOW SHEET WITH NO CHANGES OBSERVED AT THIS TIME. VSS
[2018-05-29] VITALS (12 sets, daily range): BP systolic 87–147; BP diastolic 46–107
--- NOTE | 2018-05-29 01:00 | NUR ---
VSS. NO CHANGES/DISTRESS AT THIS TIME.
--- NOTE | 2018-05-29 03:00 | NUR ---
REASSESSMENT COMPLETED PER FLOW SHEET WITH NO CHANGES OBSERVED. VSS.
--- NOTE | 2018-05-29 05:00 | NUR ---
VSS. NO CHANGES OBSERVED. ETT INTACT/PATENT/SECURED CONNECTED TO [facility] VENT WITH SETTINGS OREDERED. OGT INTACT/ SECURE/PATENT. HOB UP 40 DEGREES.
[2018-05-29 05:12] LABS: HEMATOCRIT 39.4 % (42.0-54.0); HEMOGLOBIN 12.6 g/dL (13.5-17.5); MCH 28.9 pg (26.0-34.0); MCV 90.4 fL (80.0-100.0); MEAN PLATELET VOLUME 10.5 fL (7.4-10.4); PLATELET COUNT 157 10x3/uL (130-400); RBC 4.36 10x6/uL (4.20-6.10); RDW 15.9 % (11.5-14.5); WBC 13.8 10x3/uL (4.8-10.8)
[2018-05-29 05:32] LABS: ALBUMIN 2.8 g/dL (3.4-5.0); ANION GAP 11.1 mmol/L (8-16); BILIRUBIN - TOTAL 0.37 mg/dL (0.2-1.3); CALCIUM 9.4 mg/dL (8.5-10.1); CARBON DIOXIDE 35.9 mmol/L (21.0-32.0); CREATININE - SERUM 1.1 mg/dL (0.6-1.3); PROTEIN - SERUM 8.2 g/dL (6.4-8.2)
[2018-05-29 05:40] LABS: EOSINOPHILS 1 % (0-7); LYMPHOCYTES 5 % (15-50); MONOCYTES 3 % (2-11); NEUTROPHILS 89 % (40-80); PLATELET ESTIMATE NORMAL; PLATELET MORPHOLOGY GIANT PLTS PRESENT
--- NOTE | 2018-05-29 07:20 | NUR ---
REPORT RECIEVED, SHIFT ASSESSMENT COMPLETE, PT IS SEDATED ON VENT, ON 100% FIO2 WITH 90% O2 SAT. EDEMA NOTED IN ALL EXTREMETIES, ALL PPP, VSS, WILL CON'T TO MONITOR
--- NOTE | 2018-05-29 09:48 | NUR ---
FORD COLEMAN AT BEDSIDE, UPDATE GIVEN, DECISION TO TERMINALLY EXTUBATE, DR. JORDAN AND DR. TY NOTIFIED
--- NOTE | 2018-05-29 10:45 | NUR ---
PT EXTUBATED AT THIS TIME, DR. TY AT BEDSIDE,
--- NOTE | 2018-05-29 11:03 | NUR ---
FAMILY AT BEDSIDE AT THIS TIME,
--- NOTE | 2018-05-29 11:21 | NUR ---
PT ASYSTOLE ON THE MONITOR, DR. TY AT BEDSIDE, TO PRONOUNCE
--- NOTE | 2018-05-29 11:24 | NUR ---
MANPREET NOTIFIED OF PT
--- NOTE | 2018-05-29 11:35 | NUR ---
POST MORTEM CARE GIVEN
--- NOTE | 2018-05-29 11:38 | NUR ---
[facility] NOTIED OF NEED OF SERVICES
--- NOTE | 2018-05-29 12:42 | NUR ---
HOME HERE FOR PT
--- NOTE | 2018-06-01 09:10 | MORECARE ---
CASE MANAGEMENT DISCHARGE SUMMARY PATIENT: TRACEE BYRNE UNIT: [id number] ADM DATE: 05/20/18 AGE: 57 : 58 SEX: M ROOM/BED: D.2307 AUTHOR: GEENA,DOC PHYSICIAN: REFERRING PHYSICIAN: SHIMON SIEGEL MD DATE OF SERVICE: 06/01/18 Discharge Plan Patient Name: TRACEE BYRNE Facility: [facility]:[place] : 1960 Planned Disposition: Anticipated Discharge Date: Discharge Date: 05/29/2018 Expected LOS: Initial Reviewer: [email or web address] Initial Review Date: 05/20/2018 Generated: 06/01/18 10:10 am DCP- Discharge Planning Updated by [email or web address]: Rachel Dia on 05/27/18 11:[address] CM received call back from Pam at [facility]. Pam stated facility unable to accept patient this size. States they are unable to meet patient needs. CM informed Eve, ICU nurse assistant accounting manager; Dr. Siegel and Dr Walker on status of LTACH referral. Eve will follow up with [facility]. CM will continue to follow and assist as needed with discharge planning / needs. DCP- Discharge Planning Updated by [email or web address]: Serenity Serra on 05/26/18 11:[address] [facility] in stated they could not accommodate this patient at this time. CM called and spoke with [facility] [phone] fax [phone]. CM faxed over records and awaiting determination . CM will continue to follow and assist as needed with discharge planning / needs. DCP- Discharge Planning Updated by [email or web address]: Serenity Serra on 05/26/18 11:[address] CM was able to get in touch with patient's uncle Jorden Singleton [phone]. CM explained that he was listed as next of kin / emergency contact for patient. He stated that the patient had spoken with him and said that if he was unable to make decisions for himself that he wanted him to make decisions for him. He stated that there was some family issues when the patient's mother and no family available to help take care of patient. This is the reason the patient was placed in the half-way. Mr. Singleton stated that he is in the and is currently, as we speak, going through customs and will be out of the country. CM explained situation regarding LTACH placement and trach placement. He stated that he can call back later this evening if needed. Mr. Singleton stated that the patient has a niece that in his absence is to make decisions in his behalf. Evin Byrne [phone] CM contacted Evin and spoke to her regarding patient and LTACH needs and patient will need trach in near future. Evin lives in [place]. She stated that if we need to contact her to call and if she doesn't answer to please leave message and she would call back GRETCHEN. CM went over different LTACH facilities within the state. Evin requested a [place] [facility] if possible. That way if she flies in he is close to airport. Evin chose #1 [facility] and #2 [facility]. CM notified physician and referral placed to [facility]. CM is awaiting response from [facility]. CM will continue to follow and assist as needed with discharge planning needs. DCP- Discharge Planning Updated by [email or web address]: Serenity Serra on 05/22/18 3:[address] Patient is a long-term resident at [facility] [phone]. Rena Lara plans on patient returning to their facility when discharged. CM will continue to follow and assist as needed with discharge planning / needs. DCP- Discharge Planning Updated by [email or web address]: Serenity Serra on 05/22/18 3:[address] Late Entry - 05/21/18 @ 1330 CM attempted to visit with patient regarding discharge planning/ needs. Patient currently on vent no family available. CM will continue to follow and assist as needed with discharge planning / needs CM received notice for LTACH eval prior to trach placement. Patient is a resident at [facility]. CM called to get information on next of kin or emergency contact to get consent and YANE for LTACH eval. Jorden Singleton (uncle) [phone], Evin Byrne (niece) [phone]. CM has not been able to get in contact with family for YANE. Last DP export: 05/28/18 2:14 p Patient Name: TRACEE BYRNE Page [id number] at 0910 All edits/amendments must be made on the electronic document DICTATION DATE: 06/01/18908 LACTATION CONSULTANT: BIJAN 06/01/18908 RPT#: [id number] DC DATE:05/29/18 STATUS: DIS IN [facility] [address] [place] [address] END OF REPORT
[2018-06-01 15:10] LABS: FUNGUS MYCOLOGY CULTURE Preliminary report (())
--- NOTE | 2018-06-08 13:41 | NUR ---
Per CMS protocol, restraint report logged into data base.
== END 2018-05-29 11:20 | DRG 207 ==
LOC: EDBD 18:51 → D.ER 18:51 → D.ICU 05-20 01:46
PROVIDERS: Family Medicine; Internal Medicine Pulmonary Disease; ADMIT Internal Medicine Nephrology; ATTEND Internal Medicine Nephrology
PROC: 05HY33Z Insertion of Infusion Device into Upper Vein, Percutaneous Approach (ICD-10-PCS; principal; 2018-05-20)
PROC: 5A1955Z Respiratory Ventilation, Greater than 96 Consecutive Hours (ICD-10-PCS; 2018-05-20)
PROC: 0BH17EZ Insertion of Endotracheal Airway into Trachea, Via Natural or Artificial Opening (ICD-10-PCS; 2018-05-20)
PROC: 05HY33Z Insertion of Infusion Device into Upper Vein, Percutaneous Approach (ICD-10-PCS; 2018-05-22)
PROC: 0B928ZZ Drainage of Carina, Via Natural or Artificial Opening Endoscopic (ICD-10-PCS; 2018-05-24)
PROC: 0B948ZZ Drainage of Right Upper Lobe Bronchus, Via Natural or Artificial Opening Endoscopic (ICD-10-PCS; 2018-05-24)
PROC: 0B988ZZ Drainage of Left Upper Lobe Bronchus, Via Natural or Artificial Opening Endoscopic (ICD-10-PCS; 2018-05-24)
PROC: 0B918ZZ Drainage of Trachea, Via Natural or Artificial Opening Endoscopic (ICD-10-PCS; 2018-05-24)
PROC: 0B938ZZ Drainage of Right Main Bronchus, Via Natural or Artificial Opening Endoscopic (ICD-10-PCS; 2018-05-24)
PROC: 0B978ZZ Drainage of Left Main Bronchus, Via Natural or Artificial Opening Endoscopic (ICD-10-PCS; 2018-05-24)
PROC: 0B968ZZ Drainage of Right Lower Lobe Bronchus, Via Natural or Artificial Opening Endoscopic (ICD-10-PCS; 2018-05-24)
PROC: 0B9B8ZZ Drainage of Left Lower Lobe Bronchus, Via Natural or Artificial Opening Endoscopic (ICD-10-PCS; 2018-05-24)
DX: J96.21 Acute and chronic respiratory failure with hypoxia (principal); I50.33 Acute on chronic diastolic (congestive) heart failure; J18.9 Pneumonia, unspecified organism; Z68.45 Body mass index [BMI] 70 or greater, adult; J44.1 Chronic obstructive pulmonary disease with (acute) exacerbation; E87.2 Acidosis; N17.9 Acute kidney failure, unspecified; J96.22 Acute and chronic respiratory failure with hypercapnia; E66.01 Morbid (severe) obesity due to excess calories; G47.33 Obstructive sleep apnea (adult) (pediatric); K21.9 Gastro-esophageal reflux disease without esophagitis; N40.0 Benign prostatic hyperplasia without lower urinary tract symptoms; E78.5 Hyperlipidemia, unspecified; K58.9 Irritable bowel syndrome, unspecified; J30.9 Allergic rhinitis, unspecified; I51.7 Cardiomegaly; D64.9 Anemia, unspecified; R60.1 Generalized edema